=== PATIENT | female | born 1960 | race Caucasian/White ===

== ENCOUNTER 2018-08-19 10:47 | Emergency (ER) | payer MEDICARE, OTHER ==
[2018-08-19 11:37] VITALS: BP 126/59
--- NOTE | 2018-08-19 11:48 | UC ---
Eye Complaint HPI - HPI Summary HPI Summary: left eye redness x 1 day started yesterday , getting worse today , mild discomfort of the left eye no discharge, no photophobia no cold symptoms, no injury + headaches - History of Current Complaint Chief Complaint: UCHeadache Stated Complaint: LEFT EYE CONCERN, HEADACHE Time Seen by Provider: 08/19/18 11:32 Hx Obtained From: Patient ?: No Onset/Duration: Gradual Onset, Lasting Days - 1, Still Present Timing: Constant Severity Initially: Moderate Severity Currently: Moderate Pain Intensity: 5 Location of Injury: Conjunctiva - left eye Character: Dull Aggravating Factor(s): Blinking Alleviating Factor(s): Nothing Associated Signs And Symptoms: Negative: Photophobia, Drainage (Clear), Drainage (Purulent), Vision Impairment Bilateral, Vision Impairment Right, Vision Impairment Left, Fever, Swelling - Allergies/Home Medications Allergies/Adverse Reactions: Allergies Allergy/AdvReac Type Severity Reaction Status Date / Time aspirin Allergy See Comment Verified 08/19/18 11:28 Sulfa (Sulfonamide Allergy See Comment Verified 08/19/18 11:28 Antibiotics) Home Medications: Home Medications Acetaminophen [Tylenol Extra Strength] 1,000 mg PO Q6HR PRN 08/19/18 [History Confirmed 08/19/18] Cholecalciferol TAB* [Vitamin D TAB*] 1,000 unit PO DAILY 08/19/18 [History Confirmed 08/19/18] Cyclobenzaprine TAB* [Flexeril 10 MG TAB*] 5 mg PO SEE INSTRUCTIONS 08/19/18 [ History Confirmed 08/19/18] Omeprazole 20 mg PO DAILY 08/19/18 [History Confirmed 08/19/18] Pregabalin CAP(*) [Lyrica CAP(*)] 50 mg PO SEE INSTRUCTIONS 08/19/18 [History Confirmed 08/19/18] PMH/Surg Hx/FS Hx/Imm Hx - Additional Past Medical History Additional PMH: osteoarthritis fibromyalgia - Surgical History Surgical History: Yes Surgery Procedure, Year, and Place: LT ADRENALECTOMY, RT RADIUS RODDING - Family History Known Family History: Negative: Diabetes - Social History Alcohol Use: None Substance Use Type: None Smoking Status (MU): Never Smoked Tobacco Review of Systems All Other Systems Reviewed And Are Negative: Yes Constitutional: Positive: Negative Skin: Positive: Negative Eyes: Positive: Eye Redness - left eye. Negative: Blurred Vision, Diplopia, Drainage, Photophobia ENT: Positive: Negative Respiratory: Positive: Negative Cardiovascular: Positive: Negative Gastrointestinal: Positive: Negative Genitourinary: Positive: Negative Is Patient Immunocompromised?: No Physical Exam Triage Information Reviewed: Yes Appearance: Well-Appearing, No Pain Distress, Well-Nourished Vital Signs: Initial Vital Signs Temp 98.5 F 08/19/18 11:31 Pulse 64 08/19/18 11:31 Resp 14 08/19/18 11:31 BP 126/59 08/19/18 11:31 Pulse Ox 97 08/19/18 11:31 Vital Signs Reviewed: Yes Eye Exam: Normal Eyes: Positive: Other: - left eye : + subconjunctival hemorrhage , no discharge , no tenderness or swelling ENT: Positive: Normal ENT inspection, Hearing grossly normal, Pharynx normal Neck: Positive: Supple, Nontender, No Lymphadenopathy Respiratory: Positive: Chest non-tender, Lungs clear, Normal breath sounds Cardiovascular: Positive: RRR, No Murmur, Pulses Normal Skin Exam: Normal Eye Complaint Course/Dx - Differential Dx/Diagnosis Provider Diagnosis: Subconjunctival hemorrhage Discharge - Sign-Out/Discharge Documenting (check all that apply): Patient Departure All imaging exams completed and their final reports reviewed: No Studies - Discharge Plan Condition: Stable Disposition: HOME Patient Education Materials: Subconjunctival Hemorrhage (ED) Forms: *Work Release Referrals: Josue Lerma MD [Primary Care Provider] - 7 Days - Billing Disposition and Condition Condition: STABLE Disposition: Home
== END 2018-08-19 11:53 | disposition home or self-care (01) ==
LOC: UCCORT 10:47
DX: H11.32 Conjunctival hemorrhage, left eye (principal); R51 Headache; M79.7 Fibromyalgia; Z88.6 Allergy status to analgesic agent; Z88.2 Allergy status to sulfonamides
CPT/HCPCS: 99211; G0463